=== PATIENT | female | born 1995 | race Caucasian/White ===

== ENCOUNTER 2025-04-27 17:39 | Emergency (ER) | payer OTHER ==
[~2025-04-27] VITALS: Ht 162.6 cm; Wt 63.5 kg
[2025-04-27] MEDS ORDERED: LABETALOL HCL 200 MG/40 ML VIAL IV ONE (19:00)
[2025-04-27] MEDS ORDERED: 0.9 % SODIUM CHLORIDE 1,000 ML IV ONE (19:00)
[2025-04-27 21:31] LABS: BASO % 0.5 % (0.1-1.2); EOS # 0.01 (0.04-0.54); EOS % 0.1 % (0.7-7.0); LYMPH # 1.20 (1.18-3.74); LYMPH % 11.4 % (19.3-53.1); MEAN PLATELET VOLUME 10.60 fl (9.4-12.4); MONO # 0.50 (0.24-0.82); MONO % 4.7 % (4.7-12.5); NEUT # 8.77 (1.56-6.13); NEUT % 83.1 % (34.0-71.1); RED CELL DISTRIBUTION WIDTH 11.9 % (11.6-14.4)
[2025-04-27 22:20] LABS: COVID-19 AG NEGATIVE (NEGATIVE)
[2025-04-27 22:21] LABS: ALT/SGPT 28 U/L (12-78); AST/SGOT 23 U/L (15-37); BILIRUBIN TOTAL 0.50 mg/dL (0.3-1.2); BUN CREA RATIO 17 (7.0-25.0); CREATININE SERUM 0.65 mg/dL (0.55-1.02); GFR 106.31; GLOBULINA 3.2 G/DL (2.4-3.5); GLUCOSE FASTING 94 mg/dL (65-100); OSMOLALITY SERUM 280 MOSM/KG (275-295); TSH 2.050 uIU/mL (0.358-3.74)
[2025-04-27 22:24] LABS: HCG QUANTITATIVE < 1 mUI/mL (1-3)
[2025-04-27 22:56] LABS: COCAINE NEGATIVE (NEGATIVE); METHADONE NEGATIVE (NEGATIVE); OPIATES NEGATIVE (NEGATIVE); THC ( Cannabinoids) NEGATIVE (NEGATIVE)
[2025-04-27] MEDS ORDERED: TOPROL XL25 M1 PO (23:02)
== END 2025-04-28 01:22 | disposition home or self-care (01) ==
LOC: ER 17:39
PROVIDERS: General Practice
DX: R00.2 Palpitations (principal); R00.0 Tachycardia, unspecified; R07.89 Other chest pain; Z20.822 Contact with and (suspected) exposure to COVID-19; Z88.0 Allergy status to penicillin
CPT/HCPCS: 36415; 71045; 93005; 96365; 99283; J3490; J7030